=== PATIENT | male | born 1975 | race Caucasian/White ===

== ENCOUNTER 2018-04-13 13:08 | Emergency (ER) | payer OTHER ==
[~2018-04-13] VITALS: Ht 175.3 cm; Wt 99.2 kg
[~2018-04-13 13:08] MED LIST: CENTRUM MEN'S1 EACH PO; NUVIGIL150 MG PO; PROTONIX40 MG PO; RISPERDAL0.5 MG PO; WELLBUTRIN100 MG PO
[2018-04-13 14:18] LABS: HEMATOCRIT 43.1 % (38.0-50.0); HEMOGLOBIN 15.1 G/DL (12.5-16.6); MCH 30.9 PG (29.0-34.0); MCV 88.1 FL (86-99); PLATELET COUNT 264 K/uL (156-360); RBC DIS.WIDTH-CV 12.3 % (11.8-14.6); RBC DIS.WIDTH-SD 39.8 % (39-53); RED BLOOD COUNT 4.89 M/uL (4.00-5.50)
[2018-04-13 14:42] LABS: CHLORIDE 106 mEq/L (99-109); SODIUM 143 mEq/L (136-147)
[2018-04-13 14:43] LABS: GLUCOSE 105 mg/dL (70-99)
[2018-04-13 14:47] LABS: CREATININE 1.1 mg/dL (0.6-1.3); GFR ESTIMATE (CALCULATED) > 59 mL/min/ (58.99-99999)
[2018-04-13 14:48] LABS: UREA NITROGEN (BUN) 18 mg/dL (9-23)
[2018-04-13 14:52] LABS: TROP-I INTERPRETATION NEGATIVE; TROPONIN-I < 0.01 ng/mL (0.0-0.30)
[2018-04-13 17:23] LABS: CREATINE KINASE 387 IU/L (1-294)
[2018-04-13 18:17] LABS: TROP-I INTERPRETATION NEGATIVE; TROPONIN-I < 0.01 ng/mL (0.0-0.30)
[2018-04-13 19:09] VITALS: BP 145/89
[2018-04-13] MEDS ORDERED: ATIVAN0.5 MG PO (19:09)
== END 2018-04-13 19:16 | disposition home or self-care (01) ==
LOC: EME 13:08
PROVIDERS: Physician Assistant
DX: R07.9 Chest pain, unspecified (principal); F41.0 Panic disorder [episodic paroxysmal anxiety]; K58.9 Irritable bowel syndrome, unspecified; Z88.5 Allergy status to narcotic agent
CPT/HCPCS: 71046; 80048; 82550 91; 84484; 85027; 93005; 99281; 99284